=== PATIENT | female | born 1995 | race Asian ===

== ENCOUNTER 2016-09-18 12:18 | Emergency (ER) | payer SELFPAY ==
[~2016-09-18] VITALS: Ht 160 cm; Wt 61.2 kg
[2016-09-18 12:20] VITALS: BP_SYST 118
--- NOTE | 2016-09-18 12:20 | NUR ---
Pt arrived on EMS gurney. Triaged at this time. Will hold the wall until avail bed. VSS, EMT will stay with pt until bed
--- NOTE | 2016-09-18 12:52 | NUR ---
Placed in room 03. Placed on cardiac cath lab technologist, blood pressure machine and pulse oximeter. To gown for exam. Side rails up. Report given to KEVIN Valle.
--- NOTE | 2016-09-18 13:40 | NUR ---
# 20 gauge angiocath placed to RAC. Use of asceptic technique. Opsite placed over site. Blood return noted. Blood for lab drawn from site. Flushed with 10 cc of normal saline. No evidence of infiltration noted. Patient tolerated well. # 14 FR In and Out catheter with use of sterile technique. Immediate return of 350 ml yellow urine noted. Urine sample collected and sent to lab. Pt tolerated procedure well. Patient unable to toilet self due to ALOC
--- NOTE | 2016-09-18 13:42 | NUR ---
BIB BLS PT CONFUSED, SLOW TO RESPOND, SEARCHING FOR WORDS, AROUSABLE TO VERBAL STIMULI, STATES TOOK ECSTASY AND MARIJUANA UNKNOWN TIME/DATE.STATED SHE HAS NOT SLEPT IN A WEEK, ABRASIONS NOTED TO BILATERAL KNEES LEGS/ARMS/ CHEST/BACK/ABD PALPATED DENIES PAIN. FRIEND ASPEN AT BEDSIDE AWAITING MD TO STEPHEN
[2016-09-18 13:57] LABS: BILIRUBIN,URINE NEGATIVE (NEGATIVE); BLOOD, URINE NEGATIVE (NEGATIVE); CLARITY/URINE CLEAR (CLEAR); COLOR,URINE YELLOW (YELLOW); GLUCOSE,URINE NEGATIVE (NEGATIVE); KETONES,URINE TRACE (NEGATIVE); LEUKOCYTE ESTERASE ,URINE 2+ (NEGATIVE); NITRITE, URINE NEGATIVE (NEGATIVE); PROTEIN URINE NEGATIVE (NEGATIVE); UROBILINOGEN,URINE 0.2 (0.2-1.0)
[2016-09-18] MEDS ORDERED: NACL 0.9% 1,000 ML IV ONE (14:00)
--- NOTE | 2016-09-18 14:05 | NUR ---
Dr. Bazzi at bedside examining patient.
[2016-09-18 14:24] LABS: BARBITURATE, URINE NEGATIVE (NEG <=200); BENZODIAZEPINE, URINE NEGATIVE (NEG <=150); CANNABINOID, URINE NEGATIVE (NEG <=50); COCAINE, URINE NEGATIVE (NEG <=150); METHAMPHETAMINES SCREEN,URINE NEGATIVE (NEG <=500); OPIATE, URINE NEGATIVE (NEG <=100); PHENCYCLIDINE SCREEN,URINE NEGATIVE (NEG <=25); UR TRICYCLIC ANTIDEPRESSANTS NEGATIVE (NEG <=300); URINE AMPHETAMINE NEGATIVE (NEG <=500); URINE METHADONE NEGATIVE (NEG <=200); URINE OXYCODONE SCREEN NEGATIVE (NEG <=100); URINE PROPOXYPHENE SCREEN NEGATIVE (NEG <=300)
[2016-09-18 14:26] LABS: BACTERIA,URINE FEW /HPF (None Seen); RBC,URINE 0-3 /HPF (0-3)
[2016-09-18 14:27] LABS: MUCUS,URINE None Seen /LPF (None Seen); YEAST,URINE Few /HPF (None Seen)
[2016-09-18 15:35] VITALS: BP_SYST 118
--- NOTE | 2016-09-18 15:35 | NUR ---
Patient given written and verbal discharge instructions and verbalizes understanding. ER MD discussed with patient the results and treatment provided. Patient in stable condition. ID arm band removed. IV catheter removed intact and dressing applied, no active bleeding. Rx of Cipro given. Patient educated on pain management and to follow up with PMD. Pain Scale 0/10. Opportunity for questions provided and answered.
== END 2016-09-18 15:32 | disposition home or self-care (01) ==
LOC: SED 12:18
DX: R40.4 Transient alteration of awareness (principal); N39.0 Urinary tract infection, site not specified; F41.9 Anxiety disorder, unspecified
CPT/HCPCS: 80307; 81000; 81025; 96360; 99284; J7030